=== PATIENT | female | born 1995 | race Caucasian/White ===

== ENCOUNTER 2018-01-01 20:49 | Emergency (ER) | payer BC ==
[2018-01-01 21:46] VITALS: PULSE 84; RESP 18
[2018-01-01 22:01] LABS: Appearance,Urine Turbid (Clear); Bacteria,Urine Many /hpf; Bilirubin,Urine Negative (Negative); Blood,Urine Small (Negative); Color,Urine Yellow; Glucose,Urine (UA) Negative (Negative); Ketones,Urine Negative (Negative); Leukocyte Esterase,Urine Large (Negative); Nitrite,Urine Positive (Negative); PH, Urine 6.5 (5.0-8.0); Protein,Urine 2+ (Negative); Specific Gravity,Urine 1.015 (1.001-1.035); Squamous Epithelial Cell,Urine 22 /hpf (0-4); Urobilinogen,Urine <2.0 mg/dL (<2.0); WBC,Urine >182 /hpf (0-5)
--- NOTE | 2018-01-01 22:17 | ED ---
General Adult HPI - General Chief complaint: Urogenital Stated complaint: poss UTI Time Seen by Provider: 01/01/18 21:53 Source: patient Mode of arrival: ambulatory Limitations: no limitations - History of Present Illness Initial comments: 22-year-old female presenting to the ER with a chief complaint of 3-4 days of progressively worsening urinary frequency, foul smelling urine and generalized malaise. Patient reports she has a history of urinary tract infection in the past, she reports that last year she had a UTI with very minimal dysuria or hematuria, she developed urinary frequency and fever and was diagnosed with pyelonephritis requiring hospital admission and IV antibiotics. She reports that at that time she thought she had the flu and waited to come to the hospital until she was very ill for evaluation. Patient reports that over the past 3 days she's noticed that she had progressively worsening urinary frequency and has developed a foul odor and cloudiness to her urine. She reports only minimal dysuria and no obvious hematuria. She reports that this is similar to previous urinary tract infection for her. She denies any history of sexual transmitted infection or any concern for sexual transmitted infection. She denies any possibility of . Patient reports along with urinary symptoms she's been having some generalized malaise and subjective fever which she believes is likely related to having a urinary tract infection. Patient reports that she has not been on any oral antibiotics since last year when she was treated for Jeff, she's been otherwise well and has no other complaints. Patient has no history of kidney stones or known U pathology. She's never been seen by urology. She does not have recurrent urinary tract infections. - Related Data Previous Rx's Medication Instructions Recorded Cephalexin [Keflex] 500 mg PO Q12HR 7 Days #14 cap 01/02/18 Allergies Allergy/AdvReac Type Severity Reaction Status Date / Time No Known Allergies Allergy Verified 01/01/18 21:46 Review of Systems ROS Statement: Those systems with pertinent positive or pertinent negative responses have been documented in the HPI. ROS Other: All systems not noted in ROS Statement are negative. Past Medical History Past Medical History: No Reported History History of Any Multi-Drug Resistant Organisms: None Reported Past Surgical History: No Surgical Hx Reported Past Psychological History: No Psychological Hx Reported Smoking Status: Current some day smoker Past Alcohol Use History: Occasional Past Drug Use History: None Reported General Exam Limitations: no limitations General appearance: alert, in no apparent distress Head exam: Present: atraumatic, normocephalic Eye exam: Present: normal appearance, PERRL ENT exam: Present: normal exam Neck exam: Present: normal inspection Respiratory exam: Present: normal lung sounds bilaterally. Absent: respiratory distress Cardiovascular Exam: Present: regular rate, normal rhythm GI/Abdominal exam: Present: soft. Absent: distended, tenderness Rectal exam: Present: deferred Extremities exam: Present: normal inspection, normal capillary refill. Absent: pedal edema Back exam: Present: normal inspection Neurological exam: Present: alert, oriented X3 Psychiatric exam: Present: normal affect, normal mood Skin exam: Present: warm, dry Course Vital Signs 01/01/18 01/02/18 21:44 00:08 Temperature 98.9 F 97.6 F Pulse Rate 84 84 Respiratory 18 18 Rate Blood Pressure 118/66 115/67 O2 Sat by Pulse 98 98 Oximetry Medical Decision Making - Medical Decision Making The patient was seen and evaluated, history is obtained from the patient. Young well-appearing 22-year-old female with no Sirs criteria presenting with complaint of urinary frequency and malodorous urine Urinalysis and urine tests were ordered Patient declined a pelvic exam stating she is having no vaginal discharge and has no concern for sexual transmitted infections Urinalysis does reveal an acute urinary tract infection. First dose of Keflex was ordered here in the emergency department patient will be discharged home with the by mouth Keflex. Patient was updated on findings and plan for discharge home. Patient is agreeable. All questions pertaining to care were answered to the best of my ability and the patient was discharged home in stable condition. - Lab Data Lab Results 01/01/18 01/01/18 Range/Units 21:47 21:47 Urine Color Yellow Urine Appearance Turbid H (Clear) Urine pH 6.5 (5.0-8.0) Ur Specific [place] 1.015 (1.001-1.035) Urine Protein 2+ H (Negative) Urine Glucose (UA) Negative (Negative) Urine Ketones Negative (Negative) Urine Blood Small H (Negative) Urine Nitrite Positive H (Negative) Urine Bilirubin Negative (Negative) Urine Urobilinogen <2.0 (<2.0) mg/dL Ur Leukocyte Esterase Large H (Negative) Urine WBC >182 H (0-5) /hpf Urine WBC Clumps Many H (None) /hpf Ur Squamous Epith Cells 22 H (0-4) /hpf Urine Bacteria Many H (None) /hpf Urine HCG, Qual Not Detected (Not Detectd) Disposition Clinical Impression: Urinary tract infection Disposition: HOME SELF-CARE Instructions: Urinary Tract Infection in Women (ED) Prescriptions: Cephalexin [Keflex] 500 mg PO Q12HR 7 Days #14 cap Is patient prescribed a controlled substance at d/c from ED?: No Referrals: Michelle Patel MD [Primary Care Provider] - 1-2 days Time of Disposition: 00:01
[2018-01-01] MEDS ORDERED: CEPHALEXIN 500MG STARTER PACK 4 CAP BTL PO STA (23:43)
[2018-01-02 00:08] VITALS: BP 115/67; TEMP 97.6
== END 2018-01-02 00:08 | disposition home or self-care (01) ==
LOC: EC 20:49
DX: N39.0 Urinary tract infection, site not specified (principal); F17.200 Nicotine dependence, unspecified, uncomplicated; Z53.29 Procedure and treatment not carried out because of patient's decision for other reasons
CPT/HCPCS: 81001; 81025; 99283

== ENCOUNTER 2020-11-24 16:36 | Outpatient (CLI) | payer OTHER ==
[2020-11-24 18:15] VITALS: BP 126/77; PULSE 89; RESP 18; TEMP 97.3
--- NOTE | 2020-11-24 19:17 | P.MSEPDOC ---
Presenting Problems - Arrival Data Date of Arrival on Unit: 11/24/20 Time of Arrival on Unit: 16:36 Mode of Transport: Ambulatory - Complaint OB-Reason for Admission/Chief Complaint: Pain Comment: Pelvic pain and pressure Medical History - Information : 2 Para: 1 Term: 1 : 0 Abortions: Spontaneous or Elective: 0 Number of Living Children: 1 - Gestational Age Gestational Age by LYNN (wks/days): 38 Weeks and 1 Days Review of Systems - Review of Systems Constitutional: No problems Breast: No problems ENT: No problems Cardiovascular: No problems Respiratory: No problems Gastrointestinal: No problems Genitourinary: No problems Musculoskeletal: No problems Neurological: No problems Skin: No problems Vital Signs - Temperature Temperature: 97.3 F Temperature Source: Temporal Artery Scan - Pulse Right Pulse Rate: 89 Pulse Assessment Method: Automatic Cuff - Respirations Respiratory Rate: 18 Oxygen Delivery Method: Room Air O2 Sat by Pulse Oximetry: 98 - Blood Pressure Right Arm Blood Pressure: 126/77 Blood Pressure Mean: 93 Blood Pressure Source: Automatic Cuff Medical Screen Scoring - Cervical Exam Dilation (cm): 2 Effacement (%): 50 Station: -3 Membranes: Intact - Uterine Contractions Intensity: Mild Resting: Soft to palpation - Assessment - Baby A Heart Rate - NICHD Category: Category I (Normal) NST: Reactive Physician Notification - Physician Notified Physician Notified Date: 11/24/20 Physician Notified Time: 17:20 Physician: Carmen Welsh Order Received: Yes - Notification Comment Comment: Pt may DC home and return if her contractions become closer and stronger and/or her water breaks. Maternal Triage Index - Maternal Triage Index Presenting for scheduled procedure w/no complaint: No - Stat/Priority 1 Stat Priority 1: No - Urgent/Priority 2 Urgent Priority 2: No - Prompt/Priority 3 Prompt Priority 3: No - Non-Urgent/Priority 4 Non-Urgent Priority 4: Yes Criteria Met for Priority 4: >37 weeks with complaints of pelvic pain and pressure Disposition - Disposition OB Disposition: Discharge to home Discharge Date: 11/24/20 Discharge Time: 17:28 I agree with the RN Medical Screening Exam: Yes Case reviewed; plan agreed upon as documented in EMR&OBIX.: Yes Diagnosis: RELATED CONDITIONS, UNSPECIFIED, THIRD TRIMESTER
== END 2020-11-24 17:28 | disposition home or self-care (01) ==
LOC: FBPOP 16:36
PROVIDERS: ATTEND Obstetrics & Gynecology
DX: O26.893 Other specified pregnancy related conditions, third trimester (principal); R10.2 Pelvic and perineal pain; Z3A.38 38 weeks gestation of pregnancy
CPT/HCPCS: 59025; G0463; 99213

== ENCOUNTER 2020-11-25 17:12 | Inpatient (IN) | payer OTHER ==
[2020-11-25] MEDS ORDERED: CARBOPROST TROMETHAMINE 250 MCG/ML 1 ML AMP IM PRN (17:49)
[2020-11-25] MEDS ORDERED: AMPICILLIN 2,000 MG in SODIUM CHLORIDE 0.9% 100 ML IVPB STA (17:49)
[2020-11-25] MEDS ORDERED: TERBUTALINE 1 MG/ML VIAL SQ PRN (17:49)
[2020-11-25] MEDS ORDERED: OXYTOCIN 10 UNIT/ML 1 ML VIAL IM PRN (17:49)
[2020-11-25] MEDS ORDERED: METHYLERGONOVINE 0.2 MG/ML 1 ML AMP IM PRN (17:49)
[2020-11-25] MEDS ORDERED: LIDOCAINE 0.5% (PF) 5 MG/ML (50 ML SDV) SQ PRN (17:49)
[2020-11-25] MEDS ORDERED: LACTATED RINGERS 1,000 ML IV SCH (18:00)
[2020-11-25] MEDS ORDERED: OXYTOCIN 30 UNITS/500 ML NS 30 UNIT in SALINE 1 500ML.BAG IV SCH ×2 (18:00→23:30)
[2020-11-25 18:04] LABS: Basophils % (A) 0 %; Eosinophils % (A) 0 %; HCT 31.1 % (34.0-46.0); Lymphocytes # (A) 1.7 k/uL (1.0-4.8); Lymphocytes % (A) 16 %; MCH 33.7 pg (25.0-35.0); MCHC 35.4 g/dL (31.0-37.0); MCV 95.3 fL (80.0-100.0); Mean Platelet Volume 9.4; Monocytes # (A) 0.4 k/uL (0-1.0); Monocytes % (A) 4 %; Neutrophils # (A) 8.4 k/uL (1.3-7.7); Neutrophils % (A) 78 %; Platelet Count 257 k/uL (150-450); RBC 3.27 m/uL (3.80-5.40); RDW 12.8 % (11.5-15.5); WBC 10.8 k/uL (3.8-10.6)
--- NOTE | 2020-11-25 21:05 | P.HPOB ---
History of Present Illness H&P Date: 11/25/20 Chief Complaint: SROM 25 year old at 38 weeks and 2 days presents with spontaneous rupture of membranes at 4 PM. Her cervix is 3 cm dilated, 70% effaced, and -2 station. She is grant irregularly. heart tones 130 with moderate variability and reactive. Review of Systems All systems: negative Constitutional: Denies chills, Denies fever Eyes: denies blurred vision, denies pain Ears, nose, mouth and throat: Denies headache, Denies sore throat Cardiovascular: Denies chest pain, Denies shortness of breath Respiratory: Denies cough Gastrointestinal: Denies abdominal pain, Denies diarrhea, Denies nausea, Denies vomiting Genitourinary: Denies dysuria, Denies hematuria Musculoskeletal: Denies myalgias Integumentary: Denies pruritus, Denies rash Neurological: Denies numbness, Denies weakness Psychiatric: Denies anxiety, Denies depression Endocrine: Denies fatigue, Denies weight change Past Medical History Past Medical History: No Reported History Additional Past Medical History / Comment(s): Obstetric history: She's had one previous vaginal delivery 7 lbs. 1 oz. This is her second and she's had care with Dr. Marissa arnold [facility]. Blood type is A-, antibodies negative, rubella immune, RPR nonreactive, the patient B-. GBS positive History of Any Multi-Drug Resistant Organisms: None Reported Past Surgical History: No Surgical Hx Reported Past Anesthesia/Blood Transfusion Reactions: No Reported Reaction Past Psychological History: No Psychological Hx Reported Smoking Status: Never smoker Past Alcohol Use History: Occasional Past Drug Use History: None Reported - Past Family History Mother Additional Family Medical History / Comment(s): mother has ms. wheelchair bound Medications and Allergies Home Medications Medication Instructions Recorded Confirmed Type Pnv,Calcium 72/Iron/Folic Acid 1 tab PO DAILY 11/24/20 11/24/20 History [ Plus Tablet] Allergies Allergy/AdvReac Type Severity Reaction Status Date / Time No Known Allergies Allergy Verified 11/24/20 18:04 Exam Osteopathic Statement: *. No significant issues noted on an osteopathic structural exam other than those noted in the History and Physical/Consult. Vital Signs Temp Pulse Resp BP 11/25/20 17:48 98.8 F 91 16 120/71 Intake and Output 11/25/20 11/25/20 11/25/20 06:59 14:59 22:59 Other: Weight 86.183 kg Heart: Regular rate and rhythm Lungs: Clear to auscultation bilaterally Abdomen: Soft, nontender Extremities: Negative Homans sign Results Result Diagrams: 11/25/20 17:35 Abnormal Lab Results - Last 24 Hours (Table) 11/25/20 Range/Units 17:35 WBC 10.8 H (3.8-10.6) k/uL RBC 3.27 L (3.80-5.40) m/uL Hgb 11.0 L (11.4-16.0) gm/dL Hct 31.1 L (34.0-46.0) % Neutrophils # 8.4 H (1.3-7.7) k/uL Assessment and Plan (1) Spontaneous rupture of membranes Current Visit: Yes Status: Acute Code(s): WHN4220 - SNOMED Code(s): 707386759 (2) Positive GBS test Current Visit: Yes Status: Acute Code(s): B95.1 - STREPTOCOCCUS, GROUP B, CAUSING DISEASES [facility] SNOMED Code(s): 833230064 Plan: 1. Admit to family place 2. Antibiotics for GBS prophylaxis 3. Pitocin augmentation if necessary 4. Anticipate normal vaginal delivery
[2020-11-25] MEDS ORDERED: SODIUM CHLORIDE 0.9% 100 ML BAG ONE (21:18)
[2020-11-25] MEDS ORDERED: fentaNYL (PF) 50 MCG/ML 5 ML AMP ONE (21:18)
[2020-11-25] MEDS ORDERED: ROPIVACAINE 5MG/ML 20ML VIAL ONE (21:18)
[2020-11-25] MEDS ORDERED: CITRIC ACID-SODIUM CITRATE 15 ML CUP PO ONE (21:43)
[2020-11-25] MEDS ORDERED: AMPICILLIN 1,000 MG in SODIUM CHLORIDE 0.9% 50 ML IVPB SCH (22:00)
[2020-11-25] MEDS ORDERED: HYDROCORTISONE 2.5% RECTAL CREAM 30 GM TUBE RECTAL PRN (23:23)
[2020-11-25] MEDS ORDERED: diphenhydrAMINE 25 MG CAP PO PRN (23:23)
[2020-11-25] MEDS ORDERED: diphenhydrAMINE 50 MG CAP PO PRN (23:23)
[2020-11-25] MEDS ORDERED: BENZOCAINE/MENTHOL SPRAY 1 GM/SPRAY AEROSOL TOPICAL PRN (23:23)
[2020-11-25] MEDS ORDERED: LANOLIN CREAM 5 GM TUBE TOPICAL PRN (23:23)
[2020-11-25] MEDS ORDERED: ZOLPIDEM 5 MG TAB PO PRN (23:23)
[2020-11-25] MEDS ORDERED: diphenhydrAMINE 50 MG/ML 1 ML VIAL IVP PRN ×2 (23:23)
[2020-11-25] MEDS ORDERED: Rhogam IMMUNE GLOBULIN 1,500 UNIT/1 ML IM ONE (23:23)
[2020-11-25] MEDS ORDERED: ACETAMINOPHEN TAB 325 MG TAB PO PRN (23:23)
[2020-11-25] MEDS ORDERED: SIMETHICONE 80 MG CHEWABLE PO PRN (23:23)
--- NOTE | 2020-11-25 23:27 | P.PROBDLV ---
Vaginal Delivery Note - . Vaginal Delivery Note: 25 year old at 38 weeks and 2 days presents with spontaneous rupture of membranes at 4 PM. Her cervix is 3 cm dilated, 70% effaced, and -2 station. She is grant irregularly. heart tones 130 with moderate variability and reactive. Ampicillin was started for GBS prophylaxis. Pitocin augmentation was started around 7:30 PM. She did get an epidural when she was uncomfortable. Her cervix was completely dilated at 20-23. She pushed, delivered a viable male over intact perineum under epidural anesthesia at 2258. Head delivered ROP, nuchal cord identified but patient delivered through that as anterior shoulder was delivered gentle downward guidance for by posterior shoulder and rest of body. Nose and mouth bulb suctioned, cord clamped and cut, infant placed on mother's abdomen. Apgars 8, 9, weight 7 lbs. 10 oz. Placenta delivered spontaneously, intact with three-vessel cord at 2306. Vagina, cervix, and perineum were inspected. Secondary midline laceration was repaired with 3-0 Vicryl. Estimated blood loss 250 mL. Mother and baby in stable condition.
[2020-11-25 23:58] VITALS: RESP 16
[2020-11-26 07:47] LABS: Basophils % (A) 0 %; Eosinophils % (A) 0 %; HCT 29.4 % (34.0-46.0); HGB 10.2 gm/dL (11.4-16.0); Lymphocytes # (A) 1.9 k/uL (1.0-4.8); Lymphocytes % (A) 13 %; MCH 33.3 pg (25.0-35.0); MCHC 34.8 g/dL (31.0-37.0); MCV 95.9 fL (80.0-100.0); Mean Platelet Volume 9.3; Monocytes # (A) 0.7 k/uL (0-1.0); Monocytes % (A) 5 %; Neutrophils # (A) 11.7 k/uL (1.3-7.7); Neutrophils % (A) 81 %; Platelet Count 229 k/uL (150-450); RBC 3.06 m/uL (3.80-5.40); RDW 12.2 % (11.5-15.5); WBC 14.6 k/uL (3.8-10.6)
[2020-11-26] MEDS: IBUPROFEN 600 MG TAB PO PRN ×2 (08:41→16:28)
[2020-11-26] MEDS: SENNOSIDES-DOCUSATE SODIUM 1 EACH TAB PO SCH ×2 (09:20→20:42)
--- NOTE | 2020-11-26 10:09 | P.DS ---
Providers Date of admission: 11/25/20 17:37 Expected date of discharge: 11/26/20 Attending physician: Zenaida Hyman Primary care physician: Stated None - Discharge Diagnosis(es) (1) Spontaneous rupture of membranes Current Visit: Yes Status: Resolved (2) Positive GBS test Current Visit: Yes Status: Resolved (3) Normal vaginal delivery Current Visit: Yes Status: Acute Hospital Course: Patient presented with spontaneous rupture membranes. She Pitocin augmentation and an epidural. She underwent normal vaginal delivery. course was uncomplicated. She denies nausea, vomiting, chest pain, shortness of breath or any calf pain. She'll be discharged home day #1 in stable condition to follow-up with her regular doctor, Dr. Ann in 6 weeks. Plan - Discharge Summary New Discharge Prescriptions: New Ibuprofen [Motrin] 600 mg PO Q6HR PRN #30 tab PRN Reason: Mild Pain Or Fever >= 100.5 No Action Pnv,Calcium 72/Iron/Folic Acid [ Plus Tablet] 1 tab PO DAILY Discharge Medication List Pnv,Calcium 72/Iron/Folic Acid [ Plus Tablet] 1 tab PO DAILY 11/24/20 [History] Ibuprofen [Motrin] 600 mg PO Q6HR PRN #30 tab 11/26/20 [Rx] Follow up Appointment(s)/Referral(s): Juany Ann MD [STAFF PHYSICIAN] - 6 Weeks Discharge Disposition: HOME SELF-CARE
[2020-11-27] MEDS: IBUPROFEN 600 MG TAB PO PRN (06:08)
[2020-11-27] MEDS: SENNOSIDES-DOCUSATE SODIUM 1 EACH TAB PO SCH (08:50)
[2020-11-27 09:54] VITALS: BP 126/84; PULSE 75; TEMP 98.4
== END 2020-11-27 12:50 | disposition home or self-care (01) | DRG 807 ==
LOC: FBPOP 17:12 → 4FBP 17:37
PROVIDERS: ADMIT Obstetrics & Gynecology; ATTEND Obstetrics & Gynecology
PROC: 10E0XZZ Delivery of Products of Conception, External Approach (ICD-10-PCS; principal; 2020-11-25)
PROC: 0HQ9XZZ Repair Perineum Skin, External Approach (ICD-10-PCS; 2020-11-25)
DX: O99.824 Streptococcus B carrier state complicating childbirth (principal); Z37.0 Single live birth; Z3A.38 38 weeks gestation of pregnancy; O70.0 First degree perineal laceration during delivery
CPT/HCPCS: 85025; 85461; 86850; 86900; 86901

== ENCOUNTER 2021-07-14 15:01 | Emergency (ER) | payer OTHER ==
[2021-07-14 15:21] VITALS: TEMP 98.8
[2021-07-14] MEDS ORDERED: MORPHINE SULFATE 4 MG/ML SYRINGE IM STA (17:05)
[2021-07-14 17:53] LABS: ALT 16 U/L (4-34); AST 21 U/L (14-36); African American GFR (CKD) >90 (>60 ml/min/1.73 sqM); Albumin 4.3 g/dL (3.5-5.0); Alkaline Phosphatase 39 U/L (38-126); Anion Gap 9 mmol/L; Blood Urea Nitrogen 19 mg/dL (7-17); C Reactive Protein <0.5 mg/dL (<1.0); Calcium 8.6 mg/dL (8.4-10.2); Carbon Dioxide 24 mmol/L (22-30); Chloride 104 mmol/L (98-107); Glucose 85 mg/dL (74-99); Non-African American GFR(CKD) >90 (>60 ml/min/1.73 sqM); Sodium 137 mmol/L (137-145); Total Bilirubin 0.7 mg/dL (0.2-1.3); Total Protein 7.9 g/dL (6.3-8.2)
[2021-07-14 17:57] LABS: Basophils # (A) 0.1 k/uL (0-0.2); Basophils % (A) 1 %; Eosinophils # (A) 0.1 k/uL (0-0.7); Eosinophils % (A) 1 %; HCT 38.7 % (34.0-46.0); HGB 12.8 gm/dL (11.4-16.0); Lymphocytes # (A) 2.5 k/uL (1.0-4.8); Lymphocytes % (A) 34 %; MCH 31.1 pg (25.0-35.0); MCV 94.2 fL (80.0-100.0); Mean Platelet Volume 7.4; Monocytes # (A) 0.4 k/uL (0-1.0); Monocytes % (A) 5 %; Neutrophils # (A) 4.3 k/uL (1.3-7.7); Neutrophils % (A) 57 %; Platelet Count 398 k/uL (150-450); RDW 13.8 % (11.5-15.5); WBC 7.5 k/uL (3.8-10.6)
[2021-07-14] MEDS ORDERED: ONDANSETRON ODT 4 MG TAB PO STA (18:43)
--- NOTE | 2021-07-14 18:43 | ED ---
ENT HPI - General Chief complaint: ENT Stated complaint: Rt Eye Pain, Headache Time Seen by Provider: 07/14/21 16:58 Source: patient Mode of arrival: ambulatory Limitations: no limitations - History of Present Illness Initial comments: Patient is a 26-year-old female who presents to the emergency department with a chief complaint of right eye pain. Patient reports she woke up with no vision of the right eye on 07/08/21. She was back to sleep for an hour and woke up with blurry vision. Patient reports she was evaluated by commissioning agent on 07/11/21 who t old her she most likely has optic neuritis, possibly due to multiple sclerosis. She does have a family history of multiple sclerosis. Patient has MRI for definitive diagnosis on 06/19/21. She presents today due to severe eye pain. Patient does not have other complaints at this time including fever, chills, shortness of breath, chest pain, abdominal pain, and bilateral leg/arm weakness. - Related Data Previous Rx's Medication Instructions Recorded HYDROcodone/APAP 10-325MG [[place] 1 tab PO Q6H PRN 4 Days #16 tab 07/14/21 10-325] Allergies Allergy/AdvReac Type Severity Reaction Status Date / Time No Known Allergies Allergy Verified 07/14/21 18:38 Review of Systems ROS Statement: Those systems with pertinent positive or pertinent negative responses have been documented in the HPI. ROS Other: All systems not noted in ROS Statement are negative. Past Medical History Past Medical History: No Reported History Additional Past Medical History / Comment(s): Obstetric history: She's had one previous vaginal delivery 7 lbs. 1 oz. This is her second and she's had care with Dr. Marissa arnold [facility]. Blood type is A-, antibodies negative, rubella immune, RPR nonreactive, the patient B-. GBS positive. Optic neuritis. History of Any Multi-Drug Resistant Organisms: None Reported Past Surgical History: No Surgical Hx Reported Past Anesthesia/Blood Transfusion Reactions: No Reported Reaction Past Psychological History: No Psychological Hx Reported Smoking Status: Never smoker Past Alcohol Use History: Occasional Past Drug Use History: None Reported - Past Family History Mother Additional Family Medical History / Comment(s): mother has ms. wheelchair bound General Exam Limitations: no limitations General appearance: alert, in no apparent distress Head exam: Present: atraumatic, normocephalic, normal inspection Eye exam: Present: PERRL, EOMI (Pain with left and right EOM), other (No APD) Respiratory exam: Present: normal lung sounds bilaterally. Absent: respiratory distress, wheezes, rales, rhonchi, stridor Cardiovascular Exam: Present: regular rate, normal rhythm, normal heart sounds. Absent: systolic murmur, diastolic murmur, rubs, gallop, clicks GI/Abdominal exam: Present: soft, normal bowel sounds. Absent: distended, tenderness, guarding, rebound, rigid Course Vital Signs 07/14/21 07/14/21 15:18 18:59 Temperature 98.8 F Pulse Rate 83 67 Respiratory 18 16 Rate Blood Pressure 116/73 112/79 O2 Sat by Pulse 98 96 Oximetry Medical Decision Making - Medical Decision Making This is a 26-year-old female who presents with right eye pain likely resulting from optic neuritis to multiple sclerosis. Thorough history and examination were performed. Patient does have pain with right and left extraocular eye movements. No afferent pupillary defect. No neurological deficits. Laboratory studies are unremarkable with normal ESR and CRP. Patient given morphine for pain. On reevaluation pain has moderately improved. Patient and mother report the patient will follow-up for MRI on Saturday and patient does not seek neurology referral as she already has a neurology special ist that previous family members with multiple sclerosis follow with. She will be discharged with a short course of [place]. Return parameters discussed. Patient and mother verbalized understanding and are agreeable to plan. Dr. Graff is my attending. - Lab Data Result diagrams: 07/14/21 17:23 07/14/21 17:23 Lab Results 07/14/21 07/14/21 07/14/21 Range/Units 17:23 17:23 17:36 WBC 7.5 (3.8-10.6) k/uL RBC 4.10 (3.80-5.40) m/uL Hgb 12.8 (11.4-16.0) gm/dL Hct 38.7 (34.0-46.0) % MCV 94.2 (80.0-100.0) fL MCH 31.1 (25.0-35.0) pg MCHC 33.0 (31.0-37.0) g/dL RDW 13.8 (11.5-15.5) % Plt Count 398 (150-450) k/uL MPV 7.4 Neutrophils % 57 % Lymphocytes % 34 % Monocytes % 5 % Eosinophils % 1 % Basophils % 1 % Neutrophils # 4.3 (1.3-7.7) k/uL Lymphocytes # 2.5 (1.0-4.8) k/uL Monocytes # 0.4 (0-1.0) k/uL Eosinophils # 0.1 (0-0.7) k/uL Basophils # 0.1 (0-0.2) k/uL ESR 13 (0-20) mm/hr Sodium 137 (137-145) mmol/L Potassium 4.0 (3.5-5.1) mmol/L Chloride 104 (98-107) mmol/L Carbon Dioxide 24 (22-30) mmol/L Anion Gap 9 mmol/L BUN 19 H (7-17) mg/dL Creatinine 0.76 (0.52-1.04) mg/dL Est GFR (CKD-EPI)AfAm >90 (>60 ml/min/1.73 sqM) Est GFR (CKD-EPI)NonAf >90 (>60 ml/min/1.73 sqM) Glucose 85 (74-99) mg/dL Calcium 8.6 (8.4-10.2) mg/dL Total Bilirubin 0.7 (0.2-1.3) mg/dL AST 21 (14-36) U/L ALT 16 (4-34) U/L Alkaline Phosphatase 39 (38-126) U/L C-Reactive Protein <0.5 (<1.0) mg/dL Total Protein 7.9 (6.3-8.2) g/dL Albumin 4.3 (3.5-5.0) g/dL Urine HCG, Qual Not Detected (Not Detectd) Disposition Clinical Impression: Acute right eye pain Disposition: HOME SELF-CARE Condition: Good Instructions (If sedation given, give patient instructions): Eye Pain (ED) Additional Instructions: Take medication as prescribed. Follow-up with commissioning agent and neurology specialist at earliest available appointment for further evaluation. Return to the emergency department if you experience new, concerning, or worsening symptoms Prescriptions: HYDROcodone/APAP 10-325MG [[place] 10-325] 1 tab PO Q6H PRN 4 Days #16 tab PRN Reason: pain Is patient prescribed a controlled substance at d/c from ED?: Yes When asked, does pt state using other controlled substances?: No If prescribed controlled substance>3 days was MAPS reviewed?: Yes If opioid is for acute pain is fill amount 7 days or less?: Yes If Rx opioid, was Start Talking consent form obtained?: Yes Referrals: Michelle Patel MD [Primary Care Provider] - 1-2 days Time of Disposition: 18:46
[2021-07-14 19:01] VITALS: BP 112/79; PULSE 67; RESP 16
[2021-07-14 19:18] LABS: Erythrocyte Sedimentation Rate 13 mm/hr (0-20)
== END 2021-07-14 19:01 | disposition home or self-care (01) ==
LOC: EC 15:01
DX: H57.11 Ocular pain, right eye (principal)
CPT/HCPCS: 99283; 96372; 36415; 80053; 85652; 85025; 86140; 81025; J2270